=== PATIENT | male | born 1995 | race Two or more races ===

== ENCOUNTER 2023-08-04 07:17 | Emergency (ER) | payer OTHER ==
[~2023-08-04] VITALS: Ht 175.3 cm; Wt 108.7 kg
[2023-08-04 08:00] VITALS: BP 153/95; PULSE 115; RESP 17; TEMP 98.1; O2SAT 97
[2023-08-04] MEDS: cefTRIAXone SOD 1,000 MG VL IM ONE (08:14)
[2023-08-04] MEDS: IBUPROFEN 800 MG TAB PO ONE (08:14)
[2023-08-04] MEDS ORDERED: BACDST PO (08:25)
[2023-08-04] MEDS ORDERED: IBUP-1456 PO (08:25)
[2023-08-04] MEDS ORDERED: CEPH500C PO (08:25)
== END 2023-08-04 08:31 | disposition home or self-care (01) ==
LOC: ER 07:17
DX: L08.9 Local infection of the skin and subcutaneous tissue, unspecified (principal); L02.31 Cutaneous abscess of buttock; E11.9 Type 2 diabetes mellitus without complications
CPT/HCPCS: 96372; 99283; J0696

== ENCOUNTER 2024-03-12 10:52 | Emergency (ER) | payer OTHER ==
[~2024-03-12] VITALS: Ht 175.3 cm; Wt 107.8 kg
[~2024-03-12 10:52] MED LIST: BACDST PO; CEPH500C PO; IBUP-1456 PO
[2024-03-12 11:43] VITALS: BP 138/97; PULSE 117; RESP 20; TEMP 97.7; O2SAT 97
--- NOTE | 2024-03-12 11:58 | ED.PDOC ---
History of Present Illness(SKN HPI Comments A 28 YEAR OLD MALE PRESENTS TO THE ED WITH COMPLAINT OF LEFT 5TH FINGER REDNESS AND SWELLING. PATIENT STATES HE HAS BEEN EXPERIENCING REDNESS, SWELLING, AND PAIN TO HIS LEFT 5TH FINGER FOR THE PAST 5 DAYS. PATIENT IS CONCERNED THAT HE MAY HAVE AN INFECTION TO THIS AREA. PATIENT DENIES FEVER, CHILLS, SHORTNESS OF BREATH, CHEST PAIN, ABDOMINAL PAIN, NAUSEA, VOMITING, HEADACHE, OR OTHER COMPLAINTS. NO OTHER SYMPTOMS OR MODIFYING FACTORS AT THIS TIME. PATIENT IS ALERT, ORIENTED X 4, AND HAS STEADY GAIT. Chief Complaint: Wound Check Time Seen by MD: 11:24 Primary Care Provider: none History of Present Illness: Nurses Notes, Medications, Allergies Allergies: Coded Allergies: No Known Drug Allergy (Verified Allergy, Unknown, 08/04/23) Home Meds Active Scripts Cephalexin Monohydrate (Cephalexin) 500 Mg Cap, 1 CAP PO QID, #28 CAP Prov:CHARAN NELSON 03/12/24 Cephalexin Monohydrate (Cephalexin) 500 Mg Cap, 1 CAP PO QID, #40 CAP Prov:CHARAN NELSON 08/04/23 Sulfamethoxazole W/Trimethopri (Bactrim Ds Tablet) 1 Tab Tb, 1 TAB PO BID, #20 TAB Prov:CHARAN NELSON 08/04/23 Ibuprofen (Ibuprofen) 800 Mg Tab, 1 TAB PO TID, #30 TAB Prov:CHARAN NELSON 08/04/23 Information Source: Patient Mode of Arrival: Ambulatory Severity: Moderate Timing: Days Duration: Since onset, Days Prehospital treatment: None Location: Other (LEFT 4TH FINGER) Mechanism: Spontaneous Onset Occurence: Indoors Object: None Condition of Object: None Retained Foreign Body: No Wound Type: Other (PARONYCHIA) Immunization Status of Animal: NA Tetanus: Unknown History of: None Associated Signs and Symptoms: Redness, Swelling, Pain Past Medical History PAST MEDICAL HISTORY: DM Surgical History: Denies all surgeries Family History Family History: Reviewed,noncontributory to illness Social History Smoker: Non-Smoker Alcohol: Denies ETOH Use Drugs: Denies Drug Use Lives In: Home Constitutional: denies: chills, diaphoresis, fatigue, fever, malaise, sweats, weakness, others EENTM: denies: blurred vision, double vision, ear bleeding, ear discharge, ear drainage, ear pain, ear ringing, eye pain, eye redness, hearing loss, mouth pain, mouth swelling, nasal discharge, nose bleeding, nose congestion, nose pain, photophobia, tearing, throat pain, throat swelling, voice changes, others Respiratory: denies: cough, hemoptysis, orthopnea, SOB at rest, shortness of breath, SOB with excertion, stridor, wheezing, others Cardiovascular: denies: chest pain, dizzy spells, diaphoresis, Dyspnea on exertion, edema, irregular heart beat, left arm pain, lightheadedness, palpitations, PND, syncope, others Gastrointestinal: denies: abdomen distended, abdominal pain, blood streaked bowels, constipated, diarrhea, dysphagia, difficulty swallowing, hematemesis, melena, nausea, poor appetite, poor fluid intake, rectal bleeding, rectal pain, vomiting, others Genitourinary: denies: burning, dysuria, flank pain, frequency, hematuria, incontinence, penile discharge, penile sore, pain, testicle pain, testicle swelling, urgency, others Neurological: denies: dizziness, fainting, headache, left sided numbness, left sided weakness, numbness, paresthesia, pre-existing deficit, right sided numbness, right sided weakness, seizure, speech problems, tingling, tremors, weakness, others Musculoskeletal: denies: back pain, gout, joint pain, joint swelling, muscle pa in, muscle stiffness, neck pain, others Integumetry: reports: wounds (LEFT 5TH FINGER ), others (PARONYCHIA OF LEFT 5TH FINGER); denies: bruises, change in color, change in hair/nails, dryness, laceration, lesions, lumps, rash Allergic/Immunocompromised: denies: Difficulty Healing, Frequent Infections, Hives, Itching, others Hematologic/Lymphatic: denies: anemia, blood clots, easy bleeding, easy bruis ing, swollen glands, others Endocrine: denies: excessive hunger, excessive sweating, excessive thirst, exc essive urination, flushing, intolerance to cold, intolerance to heat, unexplained weight gain, unexplained weight loss, others Psychiatric: denies: anxiety, bipolar disorder, depression, hopeless, panic disorder, schizophrenia, sleepless, suicidal, others All Other Systems: Reviewed and Negative Physical Exam General Appearance: No Apparent Distress, Normal HEENT: Normal ENT Inspection, PERRL/EOMI, Pharynx Normal, TMs Normal Neck: Full Range of Motion, Non-Tender, Normal, Normal Inspection Respiratory: Chest Non-Tender, Lungs Clear, No Accessory Muscle Use, No Respiratory Distress, Normal Breath Sounds Cardiovascular: No Edema, No JVD, No Murmur, No Gallop, Normal Peripheral Pulses, Regular Rate/Rhythm Breast Exam: Deferred Gastrointestinal: No Organomegaly, Non Tender, No Pulsatile Mass, Normal Bowel Sounds, Soft Genitalia: Deferred Pelvic: Deferred Rectal: Deferred Extremities: No calf tenderness, Normal capillary refill, Normal range of motion, No pedal edema, Tender (WITH REDNESS AND SWELLING ON LEFT 5TH FINGER TIP, +PARONYCHIA. ) Musculoskeletal : Apperance: Normal Neurologic: Alert, head of physics II-XII nml as Tested, No Motor Deficits, Normal Affect, Normal Mood, No Sensory Deficits Cerebellar Function: Normal Reflexes: Normal Skin: Dry, Warm, Wounds (LOCALIZED REDNESS, SWELLING AND MILD PUS DRAINAGE ON LEFT 5TH FINGER TIP, +PARONYCHIA. ) Peripheral Pulses: 2+ carotid (R), 2+ carotid (L) Lymphatic: No Adenopathy Was a procedure done? Was a procedure done?: Yes Sedation Sedation?: No Incision and Drainage Incision and Drainage: Other (PARONYCHIA) Location LEFT 5TH FINGER Preparation: Betadine, Saline Incision and Wound: Pus, Blood, Other (AN 18 GAUGE NEEDLE WAS USED TO POKE A HOLE INTO THE PATIENT'S PARONYCHIA ON HIS LEFT 5TH FINGER. BLOOD AND PUS WAS DRAINED FROM THE AREA. PATIENT'S WOUND WAS THEN IRRIGATED WITH NORMAL SALINE AND THEN WRAPPED WITH STERILE GAUZE. PATIENT TOLERATED WELL.), Amount, Irrigat ed Informed consent obtained: No Risks/benefits/alt described: Yes Differential Diagnosis (INTG) Differential Diagnosis: N/A Differential Diagnosis: Abscess, Cellulitis, Erysipelas, Impetigo, Intertrigo, Other (FURUNCLE, PARONYCHIA) Differential Diagnosis: N/A Abscess: N/A Differential Diagnosis: N/A X-Ray, Labs, Meds, VS Vital Signs Date Time Temp Pulse Resp B/P (MAP) Pulse Ox O2 Delivery O2 Flow Rate FiO2 03/12/24 11:43 97.7 117 20 138/97 (111) 97 97.7 03/12/24 11:43 117 20 97 Room Air 03/12/24 11:20 97.8 117 20 138/97 (111) 97 X-Ray, Labs, Meds, VS Comment EXTERNAL MEDICAL RECORDS REVIEWED: [NONE] INDEPENDENT HISTORIANS: [NONE] SOCIAL DETERMINANTS OF HEALTH: [NONE] LABS ORDERED: NONE REVIEWED AND INTERPRETED RESULTS: NONE IMAGING ORDERED: NONE TREATMENTS ORDERED: PARONYCHIA WAS DRAINED, SEE PROCEDURE NOTE. PROCEDURES PERFORMED: DRAINAGE PARONYCHIA ON LEFT 5TH FINGER, SEE PROCEDURE NOTE. CRITICAL CARE TIME: NONE I HAVE DISCUSSED THE PATIENT WITH THE ATTENDING PHYSICIAN DR. ORANTES AND HE AGREES WITH THE PATIENT'S PLAN OF CARE AND DISPOSITION. BASED ON HISTORY OF PRESENT ILLNESS, AND PHYSICAL EXAM, PATIENT WILL BE DISCHARGED HOME. DISCUSSED PLAN FOR DISCHARGE HOME WITH RX [[facility]]. MEDICATION WARNINGS GIVEN. SHARED DECISION MAKING: PATIENT INSTRUCTED TO FOLLOW UP WITH PRIMARY CARE PROVIDER IN 1-2 DAYS FOR RE-EVALUATION OF SYMPTOMS. PATIENT VERBALIZES UNDERSTANDING TO RETURN TO ED FOR NEW OR WORSENING SYMPTOMS OR IF FOLLOW UP WITH PCP CANNOT BE OBTAINED. PATIENT FEELS COMFORTABLE GOING HOME AT THIS TIME. ALL QUESTIONS ADDRESSED AT TIME OF DISCHARGE. Time of 1ST Reevaluation: 12:01 Reevaluation 1ST: Improved Patient Education/Counseling: Diagnosis, Treatment, Need For Follow Up Family Education/Counseling: Diagnosis, Treatment, Need For Follow Up Medical Screening: No EMC Exist At This Time Departure 1 Departure Time of Disposition: 12:10 Impression: Primary Impression: Paronychia of left little finger Disposition: 01 HOME / SELF CARE / HOMELESS Condition: Stable Additional Instructions: FOLLOW-UP WITH PCP IN 1 TO 2 DAYS. TAKE MEDICATIONS PRESCRIBED. RETURN TO ED FOR ANY NEW OR WORSENING SYMPTOMS. e-Prescriptions Cephalexin Monohydrate (Cephalexin) 500 Mg Cap 1 CAP PO QID, #28 CAP Prov: CHARAN NELSON 03/12/24 Discharged With: Self Critical Care Note Critical Care Time?: No Stability Stability form required: No I personally scribed for CHARAN NELSON ([email or web address]) on 03/12/24 at 11:58. Electronically submitted by Mateo Perera ([email or web address]). CHARAN NELSON Mar 12, 2024 11:58
== END 2024-03-12 12:13 | disposition home or self-care (01) ==
LOC: ER 10:52
DX: L03.012 Cellulitis of left finger (principal); E11.9 Type 2 diabetes mellitus without complications; Z79.899 Other long term (current) drug therapy
CPT/HCPCS: 10060; 10160